=== PATIENT | male | born 1930 | race Hispanic/Latino ===

== ENCOUNTER 2019-01-08 16:02 | Observation (INO) | payer OTHER ==
[~2019-01-08] VITALS: Ht 170.2 cm; Wt 72.1 kg
[2019-01-08] MEDS ORDERED: IOHEXOL 350 MG/ML 100ML INFUS..BTL IV ONE (16:22)
[2019-01-08] MEDS ORDERED: ONDANSETRON HCL 4 MG/2 ML VIAL ONE (17:06)
[2019-01-08] MEDS ORDERED: MORPHINE SULFATE 2 MG/ML 1ML SYG ONE ×2 (17:07→21:37)
[2019-01-08 17:12] LABS: BASOPHILS % (AUTO) 0.1 % (0.0-5.0); HEMATOCRIT 37.2 % (42-54); LYMPHOCYTES % (AUTO) 4.5 % (21.0-51.0); MEAN CORPUSCULAR HGB CONC 33.8 g/dL (32.0-36.0); MEAN CORPUSCULAR VOLUME 97.7 fL (79-99); MONOCYTES % (AUTO) 6.9 % (3.0-13.0); NEUTROPHILS % (AUTO) 88.5 % (40.0-77.0); PLATELET COUNT (AUTO) 146 K/uL (130-400); RED BLOOD CELL COUNT(AUTO) 3.81 MIL/uL (4.50-6.20); RED CELL DISTRIBUTION WIDTH 13.3 % (11.0-15.5); WHITE BLOOD COUNT (AUTO) 13.9 K/uL (4.8-10.8)
[2019-01-08 17:23] LABS: CREATININE 1.1 mg/dL (0.5-1.5); POTASSIUM 3.9 mmol/L (3.5-5.1)
[2019-01-08 17:26] LABS: INR 1.04 (0.85-1.15); PARTIAL THROMBOPLASTIN TIME 23.9 SEC (26.3-35.5); PROTHROMBIN TIME 10.9 SEC (9.6-11.6)
[2019-01-08 17:27] LABS: ALBUMIN 3.6 g/dL (3.5-5.0); BILIRUBIN,TOTAL 0.5 mg/dL (0.2-1.0); TOTAL PROTEIN, SERUM 6.8 g/dL (6.0-8.3)
[2019-01-08] MEDS ORDERED: LACTATED RINGERS 1000ML 1,000 ML IV ONE (23:38)
[2019-01-09] MEDS ORDERED: MORPHINE SULFATE 2 MG/ML 1ML SYG ONE (03:29)
[2019-01-09 06:56] LABS: BASOPHILS % (AUTO) 0.2 % (0.0-5.0); EOSINOPHILS % (AUTO) 0.1 % (0.0-8.0); HEMATOCRIT 35.5 % (42-54); LYMPHOCYTES % (AUTO) 7.1 % (21.0-51.0); MEAN CORPUSCULAR HGB CONC 33.8 g/dL (32.0-36.0); MEAN CORPUSCULAR VOLUME 97.5 fL (79-99); MONOCYTES % (AUTO) 7.8 % (3.0-13.0); NEUTROPHILS % (AUTO) 84.8 % (40.0-77.0); NUCLEATED RED BLOOD CELLS 0.1 % (0.0-0.19); PLATELET COUNT (AUTO) 117 K/uL (130-400); RED BLOOD CELL COUNT(AUTO) 3.65 MIL/uL (4.50-6.20); RED CELL DISTRIBUTION WIDTH 13.3 % (11.0-15.5); WHITE BLOOD COUNT (AUTO) 11.9 K/uL (4.8-10.8)
[2019-01-09 07:10] LABS: POTASSIUM 4.4 mmol/L (3.5-5.1)
[2019-01-09 07:16] LABS: ALBUMIN 3.4 g/dL (3.5-5.0); BILIRUBIN,TOTAL 0.9 mg/dL (0.2-1.0); PHOSPHORUS 3.2 mg/dL (2.5-4.9); TOTAL PROTEIN, SERUM 6.9 g/dL (6.0-8.3)
[2019-01-09] MEDS ORDERED: FAMOTIDINE/PF 20 MG/2 ML VIAL IV ONE (08:30)
[2019-01-09] MEDS ORDERED: LACTATED RINGERS 1000ML 1,000 ML IV ONE (09:32)
[2019-01-09 14:30] LABS: APPEARANCE,URINE Cloudy (CLEAR); BILIRUBIN,URINE Negative (NEGATIVE); COLOR,URINE Yellow (YELLOW); GLUCOSE, URINE (UA) TRACE mg/dL (NEGATIVE); KETONES,URINE Negative (NEGATIVE); LEUKOCYTE ESTERASE ,URINE Negative (NEGATIVE); NITRATE,URINE Negative (NEGATIVE); OCCULT BLOOD,URINE Small (NEGATIVE); PROTEIN,URINE POS 1+ mg/dL (NEGATIVE)
[2019-01-09 14:38] LABS: AMPHET/METH SCREEN,URINE NEGATIVE (NEGATIVE); BARBITURATE SCREEN, URINE NEGATIVE (NEGATIVE); BENZODIAZEPINES SCREEN,URINE NEGATIVE (NEGATIVE); CANNABINOID SCREEN,URINE NEGATIVE (NEGATIVE); COCAINE SCREEN,URINE NEGATIVE (NEGATIVE); OPIATE SCREEN,URINE POSITIVE (NEGATIVE); PHENCYCLIDINE SCREEN,URINE NEGATIVE (NEGATIVE)
[2019-01-09 14:46] LABS: BACTERIA,URINE Moderate /HPF (None Seen)
[2019-01-09 14:47] LABS: MUCUS,URINE Few LPF (None Seen)
[2019-01-09] MEDS ORDERED: ACETAMINOPHEN 325 MG TAB PO PRN (15:00)
[2019-01-09] MEDS ORDERED: ONDANSETRON HCL 4 MG/2 ML VIAL IVP PRN (15:00)
[2019-01-09 15:02] VITALS: BP 158/74
[2019-01-09] MEDS: MORPHINE SULFATE 2 MG/ML 1ML SYG IVP PRN ×2 (15:22→20:26)
[2019-01-09] MEDS: LACTATED RINGERS 1000ML 1,000 ML IV SCH ×2 (15:23→22:30)
[2019-01-09] MEDS ORDERED: PRAV10TA39 PO (15:48)
[2019-01-09] MEDS ORDERED: METF-444 PO (15:48)
[2019-01-09] MEDS ORDERED: LATA2.5D2 OP (15:48)
[2019-01-09] MEDS ORDERED: LOSA1TAB37 PO (15:48)
[2019-01-09 19:46] VITALS: BP 160/86
[2019-01-09] MEDS ORDERED: DOCUSATE SODIUM 100 MG CAP PO SCH (20:00)
--- NOTE | 2019-01-09 20:25 | NUR ---
ASSESSMENT NOTE PATIENT AWAKE, ALERT, OX2, FORGET AT TIMES, DAUGHTERS AT BEDSIDE, EXTENSIVE DISCUSSION WITH PATIENT AND DAUGHTERS IMPORTANCE OF IS AND REINFORCEMENT, PROVIDED INSTRUCTIONS OF HOW TO PERFORM IS ORDERED, POSSIBLE COMPLICATIONS , EXPECTED OUTCOME, DAUGHTERS AND PATIENT VERBALIZE UNDERSTANDING VIA TEACH BACK
[2019-01-09 23:25] VITALS: BP 157/89
[2019-01-10 04:00] VITALS: BP 156/82
[2019-01-10] MEDS: MORPHINE SULFATE 2 MG/ML 1ML SYG IVP PRN (04:30)
--- NOTE | 2019-01-10 07:15 | NUR ---
BRACE DR. HASSAN AT BEDSIDE TO ASSES PATIENT , ASKED DR. HASSAN REGARDING A NEED FOR BACK BRACE, PER DR. HASSAN NO NEED FOR BACK BRACE, PHYSICAL THERAPY TO START AMBULATING PATIENT TODAY, NO NEED TO FOLLOW UP WITH HIM after discharge
[2019-01-10 07:44] VITALS: BP 146/87
[2019-01-10] MEDS ORDERED: METFORMIN HCL 500 MG TABLET PO SCH (08:00)
[2019-01-10] MEDS ORDERED: LOSARTAN/HYDROCHLOROTHIAZIDE 50-12.5MG TABLET PO SCH (09:00)
[2019-01-10] MEDS ORDERED: FAMOTIDINE/PF 20 MG/2 ML VIAL IV SCH (09:00)
[2019-01-10] MEDS ORDERED: LOSARTAN 50 MG TABLET PO SCH (09:00)
[2019-01-10] MEDS ORDERED: HYDROCHLOROTHIAZIDE 25 MG TABLET PO SCH (09:00)
[2019-01-10] MEDS ORDERED: TRAMADOL HCL 50 MG TABLET PO PRN (09:15)
[2019-01-10 10:47] VITALS: BP 163/76
[2019-01-10] MEDS ORDERED: HYDROCODONE/ACETAMINOPHEN 5/325 MG TAB PO PRN (12:00)
--- NOTE | 2019-01-10 12:30 | NUR ---
DYSPHAGIA EVAL COMPLETED. -S/S OF ASPIRATION. RECOMMEND REGULAR TEXTURE, THIN LIQUIDS; PILLS WHOLE WITH LIQUIDS. Addendum: 01/10/19 at 1317 by SIGRID LARA, [facility] Amended: Links added.
--- NOTE | 2019-01-10 12:43 | NUR ---
RD NOTIFICATION DIET: HH/ 75GMCCD. LBM: 01/08. PO INTAKE 50-75% AND HAS GOOD APPETITE PER PT. PT AFRAID TO PASS BM DUE TO PAIN AND MULTIPLE FRACTURES SO HE DOES NOT WANT TO EAT SOLID FOODS AT THIS TIME. NO DIFFICULTY CHEWING OR SWALLOWING FOOD. RECOMMEND CONTINUE CURRENT DIET. OFFER MORE FULL LIQUIDS WITH MEALS RECOMMEND GLUCERNA TID RD WILL CONTINUE TO MONITOR AND FOLLOW UP NEEDED, THANK YOU Addendum: 01/10/19 at [address] Amended: Links added.
[2019-01-10] MEDS ORDERED: LIDOCAINE 5% TOPICAL PATCH TP SCH (13:15)
[2019-01-10] MEDS ORDERED: IPRATROPIUM/ALBUTEROL SULFATE 3 ML SOLUTION IH SCH (13:15)
--- NOTE | 2019-01-10 13:28 | NUR ---
DCP CM met with pt discussed dc plans. Pt is independent prior to admission, live at home with daughter, son in law, and grandchildren. Denies any equipments/services. Feels safe to go back home. Daughter stated will follow up with PCP after dc for possible HH, PT, DME at home. Declined short term placement, prefers to go home. Daughters able to assist with transportation and needs as necessary. DC plan to home once stable. Kofi BEARDEN aware pt does not meet IPIQ, dcp to home once cleared by consultings. Primary nurse aware. CM to cont to follow up. Addendum: 01/10/19 at 1332 by KIRILL SMALLWOOD LVN CM Amended: Links added.
[2019-01-10] MEDS ORDERED: LIDOCAINE 5% TOPICAL PATCH TP ONE (15:25)
[2019-01-10] MEDS ORDERED: LEVOFLOXACIN 500 MG TABLET PO SCH (16:00)
[2019-01-10] MEDS ORDERED: LEVO500T2 PO (16:38)
[2019-01-10] MEDS ORDERED: LIDOP TP (16:38)
--- NOTE | 2019-01-10 17:30 | NUR ---
DISCHARGE DISCHARGE TEACHING PROVIDED TO PATIENT AND PATIENTS DAUGHTER. INFORMED OF SCHEDULED F/U APPT WITH PCP DR. JAYE QUEZADA. PROVIDED EDUCATION ON DISCHARGE RX (TYLENOL #3, LEVAQUIN, LIDOCAINE TRANSDERMAL PATCH USE), FALL PREVENTION AT HOME, RIB/STERNAL/LUMBAR FRACTURE HOME CONSIDERATION AND WHEN TO RETURN TO ER. EDUCATED ON INCENTIVE SPIROMETER USE AND IMPORTANCE OF CONTINUING INCENTIVE SPIROMETER EXERCISES AT HOME. REMOVED 20G IV FROM RIGHT FA, CATHETER TIP INTACT. PATIENT IS FORGETFUL AND DOES NOT SHOW INTEREST IN DISCHARGE TEACHING. PATIENTS DAUGHTERS WERE RECEPTIVE TO DISCHARGE TEACHING. PATIENT TO BE DRIVEN HOME BY DAUGHTERS.
[2019-01-10] MEDS ORDERED: LATANOPROST 2.5 ML DROPS OP SCH (21:00)
[2019-01-10] MEDS ORDERED: ***HM***Pravastatin Sodium 10 MG PO SCH (21:00)
[2019-01-11] MEDS ORDERED: FAMOTIDINE 20MG TAB 20 MG TAB PO SCH (09:00)
[2019-01-11] MEDS ORDERED: LIDOCAINE 5% TOPICAL PATCH TP SCH (09:00)
== END 2019-01-10 18:30 | disposition home or self-care (01) ==
LOC: EDH 16:02 → EDHIP 20:44 → INTOOBSV 20:44 → 4AH 01-09 13:57
PROVIDERS: ADMIT Surgery; ATTEND Surgery
DX: S22.20XA Unspecified fracture of sternum, initial encounter for closed fracture (principal); S22.49XA Multiple fractures of ribs, unspecified side, initial encounter for closed fracture; S32.009A Unspecified fracture of unspecified lumbar vertebra, initial encounter for closed fracture; S00.81XA Abrasion of other part of head, initial encounter; I10 Essential (primary) hypertension; E11.9 Type 2 diabetes mellitus without complications; R42 Dizziness and giddiness; Z79.84 Long term (current) use of oral hypoglycemic drugs; Z79.899 Other long term (current) drug therapy; Z79.82 Long term (current) use of aspirin; W11.XXXA Fall on and from ladder, initial encounter; Y93.89 Activity, other specified; Y92.89 Other specified places as the place of occurrence of the external cause
CPT/HCPCS: 36415 ×2; 70450; 71045; 71260; 72125; 73090; 74177; 80053 ×2; 80305; 81001; 82948 ×4; 83690; 83735; 84100; 85025 ×2; 85610; 85730; 92610; 93005; 94640; 96361 ×2; 96374; 96375; 96376 ×2; 97039; 97116; 97161; 99291; G0378 ×8; G0480; G8978; G8979; G8980; G8981; G8982; G8983; J2405 ×2; J3490 ×2; J7120 ×3; Q9967